=== PATIENT | male | born 1945 | race Caucasian/White ===

== ENCOUNTER 2016-06-29 11:15 | Emergency (ER) | payer MEDICARE, OTHER ==
[~2016-06-29 11:15] MED LIST: ADVIL PO; ALTA2.5 PO; ASA5GR PO; ASAB PO; C5 PO; CRESTOR10 PO; LOP25 PO; PLAVIX PO; PRAV10 PO
== END 2016-06-29 14:40 | disposition home or self-care (01) ==
LOC: ER 11:15
DX: M25.511 Pain in right shoulder (principal); I10 Essential (primary) hypertension; I48.91 Unspecified atrial fibrillation; Z79.01 Long term (current) use of anticoagulants; Z79.899 Other long term (current) drug therapy; W17.89XA Other fall from one level to another, initial encounter
CPT/HCPCS: 73030-RT; 73560-LT; 99283